=== PATIENT | male | born 1945 | race Caucasian/White ===

== ENCOUNTER 2019-03-19 09:57 | Emergency (ER) | payer OTHER ==
[~2019-03-19] VITALS: Ht 167.6 cm; Wt 74.8 kg
[2019-03-19] MEDS ORDERED: SIMVASTATIN40 MG (10:58)
[2019-03-19] MEDS ORDERED: ECOTRIN81 MG (10:59)
== END 2019-03-19 12:31 | disposition home or self-care (01) ==
LOC: ER 09:57
DX: S50.862A Insect bite (nonvenomous) of left forearm, initial encounter (principal); L03.114 Cellulitis of left upper limb